=== PATIENT | female | born 1965 | race African-American/Black ===

== ENCOUNTER 2020-12-12 10:49 | Inpatient (IN) | payer OTHER ==
[2020-12-06 17:03] VITALS: BMI 43.9
[~2020-12-12 10:49] MED LIST: CEFAZOLIN 3 GM in DEXTROSE 5%-WATER - 100 ML IVPB ONE; TRANEXAMIC ACID 1000 MG/10 ML VIAL IVPUSH ONE
[2020-12-12] MEDS: CELECOXIB 200 MG CAPSULE PO ONE ×2 (11:18→15:56)
[2020-12-12] MEDS ORDERED: DEXAMETHASONE SOD PHOSPHATE 10 MG/1 ML VIAL ONE (12:11)
[2020-12-12] MEDS ORDERED: MIDAZOLAM HCL 2 MG/2 ML SINGLE DOSE VIAL ONE ×2 (12:11→13:15)
[2020-12-12] MEDS ORDERED: BUPIVACAINE HCL/PF 0.5% (5MG/ML) 10 ML VIAL ONE ×2 (12:11→12:31)
[2020-12-12] MEDS ORDERED: LIDOCAINE HCL/PF 2% SDV 5ML VIAL ONE (12:18)
[2020-12-12] MEDS ORDERED: VANCOMYCIN 1,000 MG VIAL (RESTRICTED TO ID ONLY) ONE (12:43)
[2020-12-12] MEDS ORDERED: ceFAZolin SODIUM 1 GM VIAL ONE ×2 (12:43→13:28)
[2020-12-12] MEDS ORDERED: TRANEXAMIC ACID 1000 MG/10 ML VIAL ONE (13:31)
[2020-12-12] MEDS ORDERED: ONDANSETRON 4 MG/2 ML VIAL ONE ×2 (13:35→14:53)
[2020-12-12] MEDS ORDERED: DEXAMETHASONE SOD PHOSPHATE 4 MG/1 ML VIAL ONE (13:35)
[2020-12-12] MEDS ORDERED: LACTATED RINGERS SOLUTION 1,000 ML IV SCH ×2 (14:00→15:00)
[2020-12-12] MEDS ORDERED: ONDANSETRON 4 MG/2 ML VIAL IVPUSH PRN (14:00)
[2020-12-12] MEDS ORDERED: oxyCODONE HCL 5 MG TABLET PO PRN ×2 (14:02)
[2020-12-12] MEDS ORDERED: PROPOFOL 20 ML ONE (14:10)
[2020-12-12] MEDS ORDERED: ALBUTEROL SO4 HFA INHALER IH PRN (14:52)
[2020-12-12] MEDS ORDERED: MAGNESIUM HYDROX 2400MG/30ML ORAL SUSPENSION 30 ML CUP PO PRN (14:54)
[2020-12-12] MEDS ORDERED: MAG HYDROX/AL HYDROX/SIMETH 30 ML UNIT-DOSE CUP PO PRN (14:54)
[2020-12-12] MEDS ORDERED: PHENYLEPHRINE HCL 10 MG/1 ML SINGLE DOSE VIAL ONE (14:54)
[2020-12-12] MEDS ORDERED: ACETAMINOPHEN INJECTION 100 ML IVPB ONE (14:59)
[2020-12-12] MEDS ORDERED: KETOROLAC TROMETHAMINE 30 MG/1 ML VIAL ONE (14:59)
[2020-12-12] MEDS: ACETAMINOPHEN 1000 MG/100 ML BAG IVPB ONE ×2 (15:10→15:55)
[2020-12-12] MEDS: KETOROLAC TROMETHAMINE 30 MG/1 ML VIAL IVPUSH SCH ×3 (15:15→20:52)
[2020-12-12] MEDS ORDERED: HALOPERIDOL LACTATE 5 MG/ML ONE (15:24)
[2020-12-12] MEDS ORDERED: FAMOTIDINE 20 MG/50 ML IVPB 20 MG/50 ML MG IVPB ONE ×2 (15:24→15:25)
[2020-12-12] MEDS ORDERED: FAMOTIDINE 20 MG PREMIXED IVPB IVPB ONE (15:30)
[2020-12-12] MEDS: INSULIN SLIDING SCALE (NOVOLOG) 1 VIAL SQ SCH ×3 (16:53→21:46)
[2020-12-12] MEDS: metFORMIN HCL 500 MG TABLET (FP) PO SCH (17:07)
[2020-12-12] MEDS: ACETAMINOPHEN 500 MG TABLET (FP) PO SCH (20:52)
[2020-12-12] MEDS: SENNOSIDES/DOCUSATE COMBO (SENNA PLUS) TABLET (UD) PO SCH (21:37)
[2020-12-12] MEDS: CEFAZOLIN 2 GM/D5W 2 GM/50 ML ML IVPB SCH (21:38)
[2020-12-12] MEDS: oxyCODONE HCL 10 MG SUSTAINED ACTING TABLET PO SCH (21:38)
[2020-12-12] MEDS ORDERED: PT OWN MED DRAWER 7, Y5N ONE (21:40)
[2020-12-12] MEDS: BUDESONIDE/FORMETEROL FUMARATE 160/4.5 mcg INHALER IH SCH (21:41)
[2020-12-13] MEDS ORDERED: oxyCODONE HCL 5 MG TABLET ONE (01:34)
[2020-12-13] MEDS ORDERED: oxyCODONE HCL 5 MG TABLET PO ONE (02:15)
[2020-12-13] MEDS ORDERED: ACETAMINOPHEN 500 MG TABLET (FP) ONE (03:18)
[2020-12-13] MEDS: ACETAMINOPHEN 500 MG TABLET (FP) PO SCH ×2 (03:19→11:51)
[2020-12-13 06:32] VITALS: TEMP 97.5
[2020-12-13] MEDS: INSULIN SLIDING SCALE (NOVOLOG) 1 VIAL SQ SCH ×2 (06:51→11:54)
[2020-12-13] MEDS: metFORMIN HCL 500 MG TABLET (FP) PO SCH (06:51)
[2020-12-13] MEDS: CEFAZOLIN 2 GM/D5W 2 GM/50 ML ML IVPB SCH (06:52)
[2020-12-13] MEDS ORDERED: LEVOTHYROXINE NA 100 MCG TABLET (FP) PO SCH (07:00)
[2020-12-13] MEDS ORDERED: ONDANSETRON *ODT* 4 MG TABLET SL PRN (07:02)
[2020-12-13] MEDS ORDERED: ASPIRIN 325 MG TABLET PO SCH (08:00)
[2020-12-13 08:05] LABS: HEMATOCRIT 31.1 % (32.4-45.2); HEMOGLOBIN 9.6 GM/dl (10.7-15.3); MCH 22.1 pg (25.7-33.7); MCHC 30.8 g/dl (32.0-36.0); MEAN CELL VOLUME 71.7 fl (80-96); MEAN PLT VOLUME 8.4 fl (7.5-11.1); PLATELET COUNT 336 10^3/uL (134-434); RBC 4.34 M/mm3 (3.60-5.2); WHITE BLOOD COUNT 12.6 K/mm3 (4.0-10.8)
[2020-12-13] MEDS ORDERED: ATORVASTATIN CA 80 MG TABLET (FP) PO SCH (10:00)
[2020-12-13] MEDS ORDERED: MULTIVITAMINS (DAILY MVI) TABLET (FP) PO SCH (10:00)
[2020-12-13] MEDS ORDERED: PANTOPRAZOLE 40 MG TABLET PO SCH (10:00)
[2020-12-13] MEDS ORDERED: HYDROCHLOROTHIAZIDE 12.5 MG CAPSULE (FP) PO SCH (10:00)
[2020-12-13] MEDS ORDERED: LISINOPRIL 20 MG TABLET PO SCH (10:00)
[2020-12-13] MEDS ORDERED: PATIENT'S OWN MEDICATION (NON-FORMULARY) (Lisinopril/Hydrochlorothiazide [Lisinopril-Hctz PO SCH (10:00)
[2020-12-13] MEDS: oxyCODONE HCL 10 MG SUSTAINED ACTING TABLET PO SCH (10:25)
[2020-12-13] MEDS: SENNOSIDES/DOCUSATE COMBO (SENNA PLUS) TABLET (UD) PO SCH (11:52)
[2020-12-13] MEDS: BUDESONIDE/FORMETEROL FUMARATE 160/4.5 mcg INHALER IH SCH (11:53)
[2020-12-13 11:57] VITALS: BP 111/68; PULSE 70
== END 2020-12-13 13:13 | disposition home health service (06) | DRG 301 ==
LOC: FM/S 10:49
PROVIDERS: ADMIT Orthopaedic Surgery; ATTEND Orthopaedic Surgery
PROC: 8E0W0CZ Robotic Assisted Procedure of Trunk Region, Open Approach (ICD-10-PCS; 2020-12-12)
PROC: 0SRB0JZ Replacement of Left Hip Joint with Synthetic Substitute, Open Approach (ICD-10-PCS; principal; 2020-12-12 14:00)
DX: M16.12 Unilateral primary osteoarthritis, left hip (principal); J44.9 Chronic obstructive pulmonary disease, unspecified; E11.9 Type 2 diabetes mellitus without complications; F17.200 Nicotine dependence, unspecified, uncomplicated; E66.01 Morbid (severe) obesity due to excess calories; Z68.41 Body mass index [BMI] 40.0-44.9, adult
CPT/HCPCS: 36415; 73502-TC-LT-FY; 82962; 85027; 94760; 97010-GP; 97116-GP; 97162-GP; J0131; J1100; Q0162

== ENCOUNTER 2021-08-08 11:46 | Emergency (ER) | payer OTHER ==
[2021-08-08 12:08] VITALS: TEMP 98.2; BMI 45.0
[2021-08-08 13:33] LABS: BASO % 0.5 % (0-2.0); EOS % 0.7 % (0-4.5); HEMATOCRIT 35.6 % (32.4-45.2); HEMOGLOBIN 10.8 GM/dL (10.7-15.3); LYMPH % 20.3 % (8-40); MCHC 30.4 g/dl (32.0-36.0); MEAN CELL VOLUME 69.2 fl (80-96); MEAN PLT VOLUME 8.4 fl (7.5-11.1); MONO % 4.7 % (3.8-10.2); NEUT % 73.8 % (42.8-82.8); PLATELET COUNT 327 10^3/uL (134-434); RBC 5.15 M/mm3 (3.60-5.2); RDW 24.4 % (11.6-15.6); WHITE BLOOD COUNT 11.6 K/mm3 (4.0-10.0)
[2021-08-08 13:34] LABS: INR 1.03 (0.83-1.09); PROTHROMBIN TIME (PATIENT) 11.9 SEC (9.7-13.0)
[2021-08-08 13:37] LABS: ACTIVATED PTT 54.2 SECONDS (25.2-36.5)
[2021-08-08 13:56] LABS: BLOOD UREA NITROGEN 15.3 mg/dL (7-18)
[2021-08-08 13:57] LABS: ALBUMIN 3.7 g/dl (3.4-5.0); CALCIUM 8.7 mg/dL (8.5-10.1)
[2021-08-08 14:00] LABS: CREATININE 0.8 mg/dL (0.55-1.3)
[2021-08-08 14:02] LABS: BILIRUBIN,TOTAL 0.6 mg/dL (0.2-1); TOT PROT 7.4 g/dl (6.4-8.2)
[2021-08-08 14:05] LABS: ANISOCYTOSIS 3+; MACROCYTOSIS 0
[2021-08-08] MEDS ORDERED: LACTATED RINGERS SOLUTION 1000 ML INFUS.BAG IV ONE (14:19)
[2021-08-08 17:31] VITALS: BP 145/79; PULSE 78
== END 2021-08-08 17:31 | disposition home or self-care (01) ==
LOC: JER 11:46
DX: R00.2 Palpitations (principal)
CPT/HCPCS: 36415; 71045-TC-FY; 71275-TC; 80053; 83735; 84439; 84443; 84484; 85025; 85379; 85610; 85730; 93005; 93010; 93225; 93226; 99285-25; Q9967